=== PATIENT | male | born 1940 ===

== ENCOUNTER 2017-04-10 05:44 | Day surgery (SDC) | payer MEDICARE, BC ==
--- NOTE | 2017-04-09 18:56 | Pre-Procedure Note/Attestation ---
Pre-Procedure Note/Attestation Complete Prior to Procedure Planned Procedure: left Procedure Narrative: shockwave lithotripsy Indications for Procedure Pre-Operative Diagnosis: nephrolithiasis Attestation I attest that I discussed the nature of the procedure; its benefits; risks and complications; and alternatives (and the risks and benefits of such alternatives ), prior to the procedure, with the patient (or the patient's legal factory representative). I attest that, if there was a reasonable possibility of needing a blood transfusion, the patient (or the patient's legal factory representative) was given the [facility] standardized written summary, pursuant to the Wes Patricia Blood Safety Act ([place] Health and Safety Code # 1645, as amended). I attest that I re-evaluated the patient just prior to the surgery and that there has been no change in the patient's H&P, except as documented below: n/a JAROD FUENTES Apr 09, 2017 18:56
[2017-04-10] VITALS (8 sets, daily range): BP systolic 92–144; BP diastolic 60–80
[~2017-04-10] VITALS: Ht 177.8 cm; Wt 72.6 kg
[~2017-04-10 05:44] MED LIST: DITROPAN10 MG ORAL; DOK100 M1 PO; OXYCODONE-ACET1 EAC3 ORAL; TIZANIDINE HCL6 MG PO
[2017-04-10] MEDS ORDERED: Iothalamate Meglumine 60% 30ML INJ ONE (06:46)
[2017-04-10] MEDS ORDERED: Muri-Lube ONE (06:47)
[2017-04-10] MEDS ORDERED: fentaNYL 100 mcg/2 mL IV ONE (07:00)
[2017-04-10] MEDS ORDERED: ceFAZolin sod 1 GM in NS 55 ML IVPB ONE (07:00)
[2017-04-10] MEDS ORDERED: Propofol 10mg/ml 20ml IV ONE (07:00)
--- NOTE | 2017-04-10 07:19 | Urology Progress Note ---
Assessment/Plan Assessment/Plan hx of nephrolithiasis BPH hx prostate ca hx NGB proceed with left ESWL risks d/w pt Subjective Allergies: Coded Allergies: No Known Allergies (Unverified , 04/09/17) Subjective hx of nephrolithiasis, for left ESWL today PMH BPH, prostate ca Objective Last 24 Hour Vital Signs Date Time Temp Pulse Resp B/P Pulse Ox O2 Delivery O2 Flow Rate FiO2 04/10/17 06:06 97.2 64 20 123/77 97 Room Air Current Medications Medications (Trade) Dose Ordered Sig/Aleksandar Route PRN Reason Start Time Stop Time Status Last Admin Dose Admin Cefazolin Sodium/ Sodium Chloride (Ancef/Sodium Chloride) 55 ml @ 110 mls/hr ONCE ONCE IVPB 04/10/17 07:00 04/10/17 07:29 preop labs noted Height (Feet): 5 Height (Inches): 10.00 Weight (Pounds): 160 Objective exam stable JAROD FUENTES Apr 10, 2017 07:19
--- NOTE | 2017-04-10 07:50 | Brief Operative Note ---
Immediate Post Operative Note Operative Note Pre-op Diagnosis: nephrolithiasis Procedure: left ESWL Post-op Diagnosis: same as pre-op Surgeon: nancie Anesthesiologist: tanya Anesthesia: general Specimen: none Complications: none Condition: stable Estimated Blood Loss: minimal Drains: none Implant(s) used?: No JAROD FUENTES Apr 10, 2017 07:50
--- NOTE | 2017-04-10 08:02 | Immediate Post-Op Evaluation ---
Immediate Post-Op Evalulation Immediate Post-Op Evalulation Procedure: eswl Date of Evaluation: Apr 10, 2017 Time of Evaluation: 08:02 Nausea: No Patient Status: awake Given Within 1 Hr of Incision: Yes Maisha Oakley MD Apr 10, 2017 08:02
--- NOTE | 2017-04-10 08:03 | Anethesia Preoperative Eval ---
Anesthesia Pre-op PMH/ROS General Date of Evaluation: Apr 10, 2017 Time of Evaluation: 07:00 Anesthesiologist: tanya ASA Score: ASA 2 Mallampati Score Class I : Soft palate, uvula, fauces, pillars visible Class II: Soft palate, uvula, fauces visible Class III: Soft palate, base of uvula visible Class IV: Only hard plate visible Mallampati Classification: Class I Allergies: Coded Allergies: No Known Allergies (Unverified , 04/09/17) Anesthesia Pre-op Phys. Exam Physician Exam Last Vital Signs Date Time Temp Pulse Resp B/P Pulse Ox O2 Delivery O2 Flow Rate FiO2 04/10/17 06:06 97.2 64 20 123/77 97 Room Air Maisha Oakley MD Apr 10, 2017 08:03
--- NOTE | 2017-04-11 01:30 | Operative Note - Dictated ---
DATE OF OPERATION: 04/10/2017 PREOPERATIVE DIAGNOSES: Left nephrolithiasis. POSTOPERATIVE DIAGNOSIS: Left nephrolithiasis. PROCEDURE PERFORMED: Left shockwave lithotripsy. OPERATING SURGEON: Rigoberto Correia M.D. ANESTHESIOLOGIST: Maisha Stone M.D. ANESTHESIA: General. INDICATION FOR PROCEDURE: This is a pleasant 76-year-old male. He has a history of bilateral nephrolithiasis with larger stones in the left kidney. Options were discussed with him and he wanted to have treatment and as such he was scheduled for the above procedure. Possible risks and complications of bleeding, infection, anesthesia, damage to the kidney were thoroughly discussed. No guarantees were given or implied. FINDINGS: The patient had visible stones on fluoroscopy that were treated. Excellent fragmentation was noted. PROCEDURE IN DETAIL: Informed consent was obtained from the patient. The patient was brought to the operating room and placed in the supine position. After successful general anesthesia was induced, the fluoroscopy was performed and the stones were visible in the left kidney. Using the [employer] Sigma machine, the stone was focused in the focal point of the shockwave generator and the shock waves were delivered. The stone were monitored fluoroscopically intermittently and excellent fragmentation was noted. Total of 1500 shocks were delivered with slow rising energy, and by end of the procedure, the stones were not visible. At this point, the patient was awakened and taken to the recovery room in stable condition. Blood loss is minimal. No complication. Rigoberto Correia M.D. DR: SIMA JOB#: [id number] CC: LORENA
== END 2017-04-10 09:55 | disposition home or self-care (01) ==
LOC: SUR 05:44
DX: N20.0 Calculus of kidney (principal); M54.5 Low back pain; N40.0 Benign prostatic hyperplasia without lower urinary tract symptoms; Z85.46 Personal history of malignant neoplasm of prostate
CPT/HCPCS: 50590; C1713; J0690; J2704; J3010; 94003; 94150